=== PATIENT | male | born 1980 | race Caucasian/White ===

== ENCOUNTER 2024-02-17 09:02 | Emergency (ER) | payer BC, SELFPAY ==
[2024-02-17 09:09] VITALS: BP 175/97; PULSE 93; TEMP 37.1; O2SAT 98; BMI 34.4
--- NOTE | 2024-02-17 09:14 | CT_ITS ---
[address] [address] Patient Name: ADRIA CLARKE MRN: [id number] date: 1980 Sex: M Assigned Patient Location: ER Current Patient Location: ER Accession/Order Number: [id number] Exam Date: 02/17/2024 09:28 Report Date: 02/17/2024 09:47 At the request of: FIORDALIZA BASSETT Procedure: CT abdomen pelvis wo con EXAMINATION: CT abdomen pelvis wo con HISTORY: flank pain COMPARISON: No relevant comparison available. TECHNIQUE: Axial, Coronal, and Sagittal images were created without IV contrast. Dose reduction techniques were achieved by using automated exposure control and/or adjustment of mA and/or kV according to patient size and/or use of iterative reconstruction technique. FINDINGS: LUNG BASES: No visible pulmonary or pleural disease. LIVER: No enlargement, atrophy, abnormal density, or significant focal lesion. BILIARY: No dilatation or calcification. PANCREAS: No lesion, fluid collection, ductal dilatation, or atrophy. SPLEEN: No enlargement or focal lesion. ADRENALS: No mass or enlargement. KIDNEYS: No mass, obstruction, or calcification. Left renal hypodensity, a cyst is favored BOWEL/MESENTERY: Mild colonic diverticulosis without evidence of acute diverticulitis. Nonobstructive bowel gas pattern. Normal appendix. AORTA/VASCULAR: No aortic aneurysm. Mild calcific atherosclerosis RETROPERITONEUM: No mass or adenopathy. LYMPH NODES: No adenopathy. URINARY BLADDER: No visible focal wall thickening, lesion, or calculus. PELVIC ORGANS: No visible mass. Pelvic organs appropriate for patient age. ABDOMINAL WALL: No mass or hernia. BONES: No bony lesion or fracture. OTHER: Negative. CT/CT abdomen pelvis wo con IMPRESSION: No obstructive uropathy Electronically authenticated by: CAROLE MILNER Date: 02/17/2024 09:47
[2024-02-17] MEDS: KETOROLAC TROMETHAMINE 30 MG/ML VIAL 15 MG IVP (09:36)
[2024-02-17 09:41] LABS: Basophils Percent Auto 0.3 % (0.2-2.0); Eosinophils Absolute Auto 0.4 10^3/uL (0.0-0.7); Eosinophils Percent Auto 2.8 % (0.9-7.0); Hematocrit 45.1 % (42.0-54.0); Hemoglobin 14.8 g/dL (14.0-18.0); Immature Granulocytes Abs Auto 0.02 10^3/uL (0.00-0.03); Immature Granulocytes Pct Auto 0.1 % (0.0-0.5); Lymphocytes Absolute Auto 2.1 10^3/uL (1.2-3.8); Lymphocytes Percent Auto 14.2 % (20.5-60.0); Mean Corpuscular HGB Conc 32.8 g/dL (29.9-35.2); Mean Corpuscular Hemoglobin 31.4 pg (25.9-34.0); Mean Corpuscular Volume 95.8 fL (80.0-94.0); Mean Platelet Volume 10.2 fL (9.5-13.5); Monocytes Percent Auto 6.8 % (1.7-12.0); Neutrophils Percent Auto 75.8 % (43.0-75.0); Platelet Count 274 10^3/uL (150-450); Red Blood Count 4.71 10^6/uL (4.70-6.10); Red Cell Distribution Width 12.4 % (11.0-15.0); White Blood Count 14.6 10^3/uL (4.0-11.0)
[2024-02-17 09:54] LABS: Bilirubin Urine SMALL (NEGATIVE); Blood Urine LARGE (NEGATIVE); Clarity Urine CLEAR (CLEAR); Color Urine DK. YELLOW (YELLOW); Glucose Urine UA NEGATIVE (NEGATIVE); Ketones Urine NEGATIVE (NEGATIVE); Leukocyte Esterase Urine SMALL (NEGATIVE); Nitrite Urine POSITIVE (NEGATIVE); Protein Urine >=300 mg/dL (NEG/TRACE); Specific Gravity Urine >=1.030 (1.005-1.025)
--- NOTE | 2024-02-17 09:55 | ED.GENADUL1 ---
HPI HPI - General Adult General Chief complaint: Urogenital-Male Stated complaint: BLEEDING IN URINE POSSIBLE KIDNEY STONE Time Seen by Provider: 02/17/24 09:13 Mode of arrival: walk-in History of Present Illness HPI narrative: The patient is coming to us with a history of kidney stone coming to us with a suprapubic discomfort and pain and feeling that he is passing kidney stone The patient not a good historian he mentioned that the pain was all over the place and he did not specify how long he has been having the symptoms and he mentioned that(he cannot tell how long) Related Data Home Medications ?Medication ?Instructions ?Recorded ?Confirmed indomethacin 50 mg capsule 50 mg PO Q8H 02/17/24 02/17/24 Previous Rx's ?Medication ?Instructions ?Recorded cephalexin 500 mg capsule 500 mg PO Q8H 7 days #21 caps 02/17/24 Opioid HPI Opioid Management Most Recent Opioid Data: Ur Phencyclidine Scrn Negative (NEGATIVE) 02/17/24 09:15 02/17/24 Review of Systems ROS Status of ROS 10 or more systems reviewed and unremarkable except as noted in history and below PFSH PFSH Social History Little interest or pleasure in doing things: not at all Feeling down, depressed, or hopeless: not at all Exam Narrative Exam Narrative: Nurses notes and vital signs reviewed and patient is not hypoxic. General: Well-appearing and in no apparent distress. Skin: Warm, dry, no pallor noted. No rash. Head: Normocephalic, atraumatic. Neck: Supple, non-tender. Eye: Pupils are equal, round and EOMI. No scleral icterus. Ears, Nose, Mouth, and Throat: TM are clear, no nasal mucosal hypertrophy. Oral mucosa is moist, no posterior oropharynx erythema, uvula is mid-line Cardiovascular: Regular Rate and Rhythm without murmur, gallop or rub. Respiratory: No accessory muscle use or respiratory distress. Lungs are clear to auscultation, no wheezing, rales or rhonchi Chest Wall: no tenderness Back: No midline thoracic or lumbar vertebral tenderness. No CVA tenderness Musculoskeletal: normal ROM, no calf or popliteal tenderness, no lower extremity edema/swelling GI: Abdomen is soft, non-distended. Normal bowel sounds. No masses appreciated. No tenderness to palpation. No rebound, guarding, or rigidity noted. Neurological: A&O x4. No cranial nerve dysfunction observed. No truncal ataxia. Moves all extremities. Sensation intact. Psychiatric: Cooperative and interactive. Normal mood and affect. Constitutional Vital Signs, click to edit/add: Last Vital Signs Temp 98.7 F 02/17/24 09:09 Pulse 93 H 02/17/24 09:09 Resp 18 02/17/24 09:09 BP 175/97 H 02/17/24 09:09 Pulse Ox 98 02/17/24 09:09 O2 Del Method Room Air 02/17/24 09:09 Course Vital Signs Vital signs: Vital Signs Temperature 98.7 F 02/17/24 09:09 Pulse Rate 93 H 02/17/24 09:09 Respiratory Rate 18 02/17/24 09:09 Blood Pressure 175/97 H 02/17/24 09:09 Pulse Oximetry 98 02/17/24 09:09 Oxygen Delivery Method Room Air 02/17/24 09:09 Temperature 98.7 F 02/17/24 09:09 Pulse Rate 93 H 02/17/24 09:09 Respiratory Rate 18 02/17/24 09:09 Blood Pressure 175/97 H 02/17/24 09:09 Pulse Oximetry 98 02/17/24 09:09 Oxygen Delivery Method Room Air 02/17/24 09:09 Medical Decision Making [facility] Narrative Medical decision making narrative: The patient CBC shows a leukocytosis of 14 Chemistry was within normal CT abdomen pelvis showed no acute pathology but the urine is showing possible UTI Right now the patient will be discharged with the Keflex at the treatment for his UTI instructed on hydration Patient to be alarmed in case of any fever or increasing pain he is to come back to the ER The patient is to follow up with primary care physician in next 2-3 days or to return to the emergency department should any of the signs or symptoms worsen or new symptoms develop. The patient agrees with the following Diagnosis and Treatment plan and the patient will be discharged home. Lab Data Labs: Lab Results 02/17/24 02/17/24 Range/Units 09:15 09:18 WBC 14.6 H (4.0-11.0) 10^3/uL RBC 4.71 (4.70-6.10) 10^6/uL Hgb 14.8 (14.0-18.0) g/dL Hct 45.1 (42.0-54.0) % MCV 95.8 H (80.0-94.0) fL MCH 31.4 (25.9-34.0) pg MCHC 32.8 (29.9-35.2) g/dL RDW 12.4 (11.0-15.0) % Plt Count 274 (150-450) 10^3/uL MPV 10.2 (9.5-13.5) fL Neut % (Auto) 75.8 H (43.0-75.0) % Lymph % (Auto) 14.2 L (20.5-60.0) % [place] % (Auto) 6.8 (1.7-12.0) % Eos % (Auto) 2.8 (0.9-7.0) % Baso % (Auto) 0.3 (0.2-2.0) % Neut # (Auto) 11.0 H (1.4-6.5) 10^3/uL Lymph # (Auto) 2.1 (1.2-3.8) 10^3/uL [place] # (Auto) 1.0 H (0.3-0.8) 10^3/uL Eos # (Auto) 0.4 (0.0-0.7) 10^3/uL Baso # (Auto) 0.0 (0.0-0.1) 10^3/uL Abs Immat Gran (auto) 0.02 (0.00-0.03) 10^3/uL Imm/Tot Granulo (auto) 0.1 (0.0-0.5) % Sodium 141 (136-145) mmol/L Potassium 4.1 (3.5-5.1) mmol/L Chloride 103 (98-107) mmol/L Carbon Dioxide 30.7 (21.0-32.0) mmol/L Anion Gap 11.4 BUN 10.0 (7.0-18.0) mg/dL Creatinine 0.82 (0.70-1.30) mg/dL Est GFR ( Amer) >60 (>=60 mL/min/1.73m^2) Est GFR (Non-Af Amer) >60 (>=60 mL/min/1.73m^2) BUN/Creatinine Ratio 12.2 Glucose 134 H (74-106) mg/dL Calcium 9.2 (8.5-10.1) mg/dL Total Bilirubin 0.6 (0.2-1.0) mg/dL AST 14 L (15-37) U/L ALT 21 (16-63) U/L Alkaline Phosphatase 98 (46-116) U/L Total Protein 7.6 (6.4-8.2) g/dL Albumin 3.8 (3.4-5.0) g/dL Globulin 3.8 g/dL Albumin/Globulin Ratio 1.0 Urine Color Dk. yellow (YELLOW) Urine Clarity Clear (CLEAR) Urine pH 6.0 (5.0-9.0) Ur Specific [place] >=1.030 A (1.005-1.025) Urine Protein >=300 A (NEG/TRACE) mg/dL Urine Glucose (UA) Negative (NEGATIVE) mg/dL Urine Ketones Negative (NEGATIVE) mg/dL Urine Occult Blood Large A (NEGATIVE) Urine Nitrite Positive A (NEGATIVE) Urine Bilirubin Small A (NEGATIVE) Urine Urobilinogen 1.0 (0.2-1.0) EU/dL Ur Leukocyte Esterase Small A (NEGATIVE) Urine Opiates Screen Negative (NEGATIVE) Ur Buprenorphine Scrn Negative (NEGATIVE) Ur Oxycodone Screen Negative (NEGATIVE) Urine Methadone Screen Negative (NEGATIVE) Ur Barbiturates Screen Negative (NEGATIVE) U Tricyclic Antidepress Negative (NEGATIVE) Ur Phencyclidine Scrn Negative (NEGATIVE) Ur Amphetamines Screen Negative (NEGATIVE) U Methamphetamines Scrn Negative (NEGATIVE) U Benzodiazepines Scrn Negative (NEGATIVE) Urine Cocaine Screen Negative (NEGATIVE) U Cannabinoids Screen Positive A (NEGATIVE) Discharge Plan Discharge Chief Complaint: Urogenital-Male Clinical Impression: Urinary tract infection Patient Disposition: Home, Self-Care Time of Disposition Decision: 10:22 Condition: Good Prescriptions / Home Meds: New cephalexin 500 mg capsule 500 mg PO Q8H 7 Days Qty: 21 0RF No Action indomethacin 50 mg capsule 50 mg PO Q8H Print Language: Wolof Instructions: Urinary Tract Infection in Men (DC) Referrals: Physician,Non-Staff, [Primary Care Provider] - 1 week Discharge Date/Time: 02/17/24 10:31
[2024-02-17 09:56] LABS: Alanine Aminotransferase 21 U/L (16-63); Albumin Level 3.8 g/dL (3.4-5.0); Alkaline Phosphatase 98 U/L (46-116); Anion Gap 11.4; Aspartate Amino Transferase 14 U/L (15-37); BUN Creatinine Ratio 12.2; Bilirubin Total 0.6 mg/dL (0.2-1.0); Calcium 9.2 mg/dL (8.5-10.1); Carbon Dioxide 30.7 mmol/L (21.0-32.0); Chloride 103 mmol/L (98-107); Estimated GFR (African America >60 (>=60 mL/min/1.73m^2); Estimated GFR (Non-African Ame >60 (>=60 mL/min/1.73m^2); Globulin 3.8 g/dL; Glucose 134 mg/dL (74-106); Potassium 4.1 mmol/L (3.5-5.1); Sodium 141 mmol/L (136-145); Total Protein 7.6 g/dL (6.4-8.2)
[2024-02-17 09:57] LABS: Urine Microscopic Indicated YES
[2024-02-17 10:13] LABS: Amphetamine Screen Urine NEGATIVE (NEGATIVE); Barbiturates Screen Urine NEGATIVE (NEGATIVE); Benzodiazepines Screen Urine NEGATIVE (NEGATIVE); Buprenorphine Screen Urine NEGATIVE (NEGATIVE); Cannabinoid Screen Urine POSITIVE (NEGATIVE); Cocaine Screen Urine NEGATIVE (NEGATIVE); Methadone Screen Urine NEGATIVE (NEGATIVE); Methamphetamines Screen Urine NEGATIVE (NEGATIVE); Opiate Screen Urine NEGATIVE (NEGATIVE); Oxycodone Screen Urine NEGATIVE (NEGATIVE); Phencyclidine Screen Urine NEGATIVE (NEGATIVE)
[2024-02-17 10:14] LABS: Tricyclic Antidepressant Urine NEGATIVE (NEGATIVE)
[2024-02-17] MEDS: CEPHALEXIN 500 MG CAPSULE PO (10:27)
[2024-02-17 10:41] LABS: Bacteria Urine MODERATE #/HPF (NONE SEEN); RBC Urine 20-50 #/HPF (0-2); WBC Urine 20-50 #/HPF (NONE SEEN)
[2024-02-17 10:42] LABS: Cast Seen? NONE SEEN #/LPF (NONE SEEN); Crystals Seen? None Seen #/HPF (None Seen); Mucus Urine TRACE (NONE SEEN); Squamous Epithelial Cell Urine FEW #/LPF (NONE/RARE); Urine Culture Indicated YES
[2024-02-19 08:02] LABS: BOX Test Reference Lab FIRELANDS
--- NOTE | 2024-02-22 12:31 | PC.NURSE ---
Urine culture completed and reviewed by Iris VALLE. patient was already placed on cephalexin. no change in treatment.
== END 2024-02-17 10:31 | disposition home or self-care (01) ==
PROVIDERS: Emergency Provider Emergency Medicine
DX: N39.0 Urinary tract infection, site not specified (principal); Z87.442 Personal history of urinary calculi
CPT/HCPCS: 36415; 74176; 80053; 80307; 81001; 85025; 87086; 87150; 87186; 96374; 99284; J1885

== ENCOUNTER 2024-06-13 17:37 | Emergency (ER) | payer BC, SELFPAY ==
[2024-06-13 17:42] VITALS: BP 152/98; PULSE 88; TEMP 36.7; O2SAT 98; BMI 32.1
[2024-06-13 17:51] VITALS: O2SAT 100
[2024-06-13] MEDS: TETRACAINE HCL 0.5% OP SOL 80 DROP/4 ML BOTTLE OP (18:03)
[2024-06-13] MEDS: FLUORESCEIN SODIUM 1 MG STRIP OP (18:03)
--- NOTE | 2024-06-13 18:42 | ED_ITS ---
HPI - Eye Problem General Chief complaint: Eye Problems Stated complaint: foreign object in eye Time Seen by Provider: 06/13/24 17:54 Source: patient Mode of arrival: walk-in History of Present Illness HPI Narrative: The patient is coming to the ER after he was mowing the lawn and apparently felt that something got into his eyes, the patient already was feeling much better after he tried cleaning his eyes and thought there is a piece of dirt in it The patient denies any other concerns at the moment he denies any blurry vision, the foreign sensation feeling in his eyes is decreased and he is feeling much better after cleaning Related Data Previous Rx's ?Medication ?Instructions ?Recorded erythromycin 5 mg/gram (0.5 %) eye 0.5 inch ophthalmic (eye) Q4H #3.5 06/13/24 ointment grams Allergies Allergy/AdvReac Type Severity Reaction Status Date / Time Penicillins Allergy black Verified 06/13/24 17:41 tongue Review of Systems ROS Status of ROS 10 or more systems reviewed and unremark able except as noted in history and below PFSH PFSH Social History Little interest or pleasure in doing things: not at all Feeling down, depressed, or hopeless: not at all Exam Narrative Exam Narrative: Nurses notes and vital signs reviewed and patient is not hypoxic. General: Well-appearing and in no apparent distress. Skin: Warm, dry, no pallor noted. No rash. Head: Normocephalic, atraumatic. Neck: Supple, non-tender. Eye: Pupils are equal, round and EOMI. there is a conjunctival erythema noted on the lateral aspect of the right eye no foreign body seen and the conjunctiva otherwise is not radiated no upper or lower eyelid edema Constitutional Vital Signs, click to edit/add: Last Vital Signs Temp 98.1 F 06/13/24 17:42 Pulse 88 06/13/24 17:42 Resp 16 06/13/24 17:42 BP 152/98 H 06/13/24 17:42 Pulse Ox 100 06/13/24 17:51 O2 Del Method Room Air 06/13/24 17:51 Course Vital Signs Vital signs: Vital Signs Temperature 98.1 F 06/13/24 17:42 Pulse Rate 88 06/13/24 17:42 Respiratory Rate 16 06/13/24 17:42 Blood Pressure 152/98 H 06/13/24 17:42 Pulse Oximetry 98 06/13/24 17:42 Oxygen Delivery Method Room Air 06/13/24 17:42 Temperature 98.1 F 06/13/24 17:42 Pulse Rate 88 06/13/24 17:42 Respiratory Rate 16 06/13/24 17:42 Blood Pressure 152/98 H 06/13/24 17:42 Pulse Oximetry 100 06/13/24 17:51 Oxygen Delivery Method Room Air 06/13/24 17:51 MDM - Eye Problem MDM Narrative Medical decision making narrative: Bedside evaluation showed no foreign body in the eye but there is some conjunctival erythema and after applying tetracaine and with the fluorescent dye I was able to see a small less than 1 mm abrasion just lateral to the right eye cornea, After irrigation of the eye the patient was provided with the erythromycin ointment instructed to follow-up with the ophthalmology within 2 days The patient is to follow up with primary care physician in next 2-3 days or to return to the emergency department should any of the signs or symptoms worsen or new symptoms develop. The patient agrees with the following Diagnosis and Treatment plan and the patient will be discharged home. Clinical diagnoses conjunctival abrasion Discharge Plan Discharge Chief Complaint: Eye Problems Clinical Impression: Abrasion of conjunctiva Patient Disposition: Home, Self-Care Time of Disposition Decision: 18:44 Condition: Good Prescriptions / Home Meds: New erythromycin 5 mg/gram (0.5 %) ointment 0.5 inch ophthalmic (eye) Q4H Qty: 3.5 0RF Rx Instructions: apply to the right eye Print Language: Mongolian Instructions: Corneal Abrasion (DC) Referrals: Physician,Non-Staff, MD [Primary Care Provider] - 1 week Discharge Date/Time: 06/13/24 19:25
[2024-06-13] MEDS: ERYTHROMYCIN OP OINT 0.5% 1 GM TUBE OP (19:13)
== END 2024-06-13 19:25 | disposition home or self-care (01) ==
PROVIDERS: Emergency Provider Emergency Medicine
DX: S05.01XA Injury of conjunctiva and corneal abrasion without foreign body, right eye, initial encounter (principal); X58.XXXA Exposure to other specified factors, initial encounter
CPT/HCPCS: 99284